=== PATIENT | female | born 1975 | race Caucasian/White ===

== ENCOUNTER → 2021-03-21 | Outpatient (CLI) | payer BC | LOC: KOH-I 10:47 | DX: S82.891D Other fracture of right lower leg, subsequent encounter for closed fracture with routine healing (principal) | CPT/HCPCS: 73610 ==

== ENCOUNTER → 2021-04-04 | Outpatient (CLI) | payer BC | LOC: KOH-I 08:54 | DX: S82.401A Unspecified fracture of shaft of right fibula, initial encounter for closed fracture (principal) | CPT/HCPCS: 73610 ==

== ENCOUNTER → 2021-04-25 | Outpatient (CLI) | payer BC | LOC: KOH-I 08:53 | DX: S82.831D Other fracture of upper and lower end of right fibula, subsequent encounter for closed fracture with routine healing (principal) | CPT/HCPCS: 73610 ==